=== PATIENT | female | born 1945 | race Caucasian/White ===

== ENCOUNTER 2017-11-23 12:06 | Day surgery (SDC) | payer MEDICARE, BC ==
[2017-11-23] MEDS ORDERED: LIDOCAINE 2% MDV (20MG/ML) 20ML VIAL IV ONE (12:07)
[2017-11-23] MEDS ORDERED: PROPOFOL 10 MG/ML VIAL IV ONE (12:07)
--- NOTE | 2017-11-24 12:50 | Operative Note ---
DATE OF SURGERY: 11/23/2017 OPERATION: COLONOSCOPY to the cecum with cold biopsy forceps polypectomy x2. INDICATION: Colorectal cancer screening. The patient's last examination was 10 years ago at which time she had a hyperplastic polyp only. Note: The patient was also initially scheduled to have upper endoscopy; however, she was having GERD-type symptoms during the time she was experiencing a flu bug with GI symptoms. These symptoms completely resolved and her pyrosis likewise resolved. She states that she is back to her previous health. Upper endoscopy was therefore not completed. ANESTHESIA: Intravenous sedation was administered by the department of anesthesiology and included Diprivan titrated to effect. PROCEDURE: Following informed consent from this alert individual including a discussion of the risks and benefits of the procedure and an opportunity for the patient to ask questions, the patient was in the left lateral decubitus position. A digital rectal examination was performed. No abnormalities were noted. Following this, the Olympus DLC041 video colonoscope was inserted into the rectum without resistance. The rectal mucosa had a normal appearance with normal folds and distensibility. The colonoscope was advanced up through the bowel to the level of the cecum without much difficulty. Throughout the bowel the mucosa appeared normal, the folds were normal, and the bowel was fairly well distensible. The cecum was defined by noting the appendiceal orifice and ileocecal valve. The colon preparation was good. Retroflexion in the cecum was endoscopically normal. From the base of the cecum, the colonoscope was then slowly withdrawn. There were 2 polyps noted upon withdrawal; one in the descending colon measuring 3 mm in size and a second diminutive 3 mm polyp noted in the rectum. Each polyp was removed with application of cold biopsy forceps. No other changes were appreciated. Retroflexion in the rectum was endoscopically normal. The instrument was then withdrawn. The patient tolerated the procedure well and was returned to the recovery area in stable condition. IMPRESSION: Two diminutive polyps removed from the descending colon and rectum with biopsy forceps. The remainder of the study was unremarkable. RECOMMENDATIONS: Further recommendations will be forthcoming pending results of pathology obtained today. Followup will also be with primary care physician, Dr. Alonzo. As always, thank you for allowing me to participate in the care of your patient. CC: DO CHEN Santiago
== END 2017-11-23 14:14 | disposition home or self-care (01) ==
LOC: HOP 12:06
PROVIDERS: ATTEND Internal Medicine Gastroenterology
DX: Z12.11 Encounter for screening for malignant neoplasm of colon (principal); Z87.19 Personal history of other diseases of the digestive system; D12.4 Benign neoplasm of descending colon; K63.5 Polyp of colon; I48.91 Unspecified atrial fibrillation; Z79.01 Long term (current) use of anticoagulants; I10 Essential (primary) hypertension